=== PATIENT | female | born 1995 | race Caucasian/White ===

== ENCOUNTER 2019-06-08 08:10 | Outpatient (CLI) | payer BC ==
--- NOTE | 2019-06-08 09:40 | ULT ---
ULTRASOUND ABDOMEN COMPLETE: HISTORY: Generalized abdominal pain, nausea, and vomiting in a 23-year-old female. ICD-10: R11.10, vomiting, intractability of vomiting not specified, presence of nausea not specified , unspecified vomiting type. FINDINGS: The gallbladder has normal wall thickness and has no evidence of gallstones or sludge. The hepatic e chogenicity is normal. The kidneys have normal echogenicity, and there is no hydronephrosis. There is no splenomegaly. There is no abdominal aortic aneurysm. No free fluid is identified. The inferi or vena cava is visualized. The pancreas is visualized, although ultrasound is relatively insensitiv e for pancreatic pathology compared to CT and MRI. There is no biliary dilation. The common duct ca liber is 4 mm. IMPRESSION: Normal. jn [] POS: CET
== END 2019-06-08 08:11 | disposition home or self-care (01) ==
LOC: SCSULT 08:10
PROVIDERS: ATTEND Family Medicine
DX: R11.10 Vomiting, unspecified (principal)
CPT/HCPCS: 76700

== ENCOUNTER 2019-08-03 09:09 | Outpatient (CLI) | payer BC ==
--- NOTE | 2019-08-03 09:56 | RAD ---
Upright and supine frontal imaging of abdomen and pelvis: 08/03/2019 COMPARISON: None HISTORY: Abdominal cramping FINDINGS: Upright imaging demonstrates no free intraperitoneal air. The bowel gas pattern nonobstruct ed. There is mild levoscoliosis at the thoracolumbar junction. IMPRESSION: No free intraperitoneal air or evidence of small bowel obstruction.
[2019-08-03 10:05] LABS: #Basophils 0.1 thou/uL (0.0-0.2); #Eosinphils 0.1 thou/uL (0.0-0.7); #Lymphocytes 2.1 thou/uL (1.20-3.40); #Monocytes 0.6 thou/uL (0.11-0.59); #Neutrophils 3.8 thou/uL (1.40-6.50); %Basophils 1.2 % (0.0-1.0); %Eosinophils 1.1 % (0.0-10.0); %Monocytes 9.3 % (0.0-10.0); %Neutrophils 56.4 % (42.0-75.0); Hemoglobin 14.1 g/dL (12.0-16.0); Mean Corpuscular HGB CONC 33.1 g/dL (32.0-36.0); Mean Corpuscular Hemoglobin 30.5 pg (27.0-31.0); Mean Platelet Volume 7.3 fL (7.4-10.4); Platelet Count 278 thou/uL (130-400); RBC Distribution Width 11.6 % (11.5-14.5); Red Blood Cell (RBC) Count 4.63 mill/uL (4.20-5.40); White Blood Cell (WBC) Count 6.7 thou/uL (4.8-10.8)
[2019-08-03 16:27] LABS: ALT (SGPT) 18 U/L (8-55); AST (SGOT) 15 U/L (5-34); Albumin 4.3 g/dL (3.5-5.0); Alkaline Phosphatase 60 U/L (40-150); Anion Gap 14 mmol/L (10-20); BUN (Urea Nitrogen) 15 mg/dL (7.0-18.7); Bilirubin, Total 0.3 mg/dL (0.2-1.2); Calc. Creatinine Clearance 0 mL/min (70-130); Calcium 9.9 mg/dL (7.8-10.44); Carbon Dioxide 25 mmol/L (22-29); Chloride 106 mmol/L (98-107); Estimated GFR-MDRD Greater than 90; Globulin 2.9 g/dL (2.4-3.5); Glucose 80 mg/dL (70-105); Potassium 4.4 mmol/L (3.5-5.1); Protein, Total 7.2 g/dL (6.0-8.3); Sodium 141 mmol/L (136-145)
[2019-08-04 18:03] LABS: EliA Celiac New Method **** NEW METHOD ****; t-Transglutaminase (tTG) IgA 0.3 EliAU/mL (<7 Negative)
== END 2019-08-03 09:10 | disposition home or self-care (01) ==
LOC: SCSRAD 09:09
PROVIDERS: ATTEND Internal Medicine Gastroenterology
DX: K21.9 Gastro-esophageal reflux disease without esophagitis (principal); K58.1 Irritable bowel syndrome with constipation
CPT/HCPCS: 36415; 74019; 80053; 83516; 84443; 85025